=== PATIENT | female | born 1980 | race Caucasian/White ===

== ENCOUNTER → 2017-12-19 | Outpatient (CLI) | payer OTHER ==
--- NOTE | 2017-12-19 15:17 | RADIOLOGY REPORT (SQ) ---
EXAM DESCRIPTION: CHEST PA/LAT COMPLETED DATE/TIME: 12/19/2017 2:24 pm REASON FOR STUDY: COUGH COMPARISON: None. EXAM PARAMETERS: NUMBER OF VIEWS: two views TECHNIQUE: Digital Frontal and Lateral radiographic views of the chest acquired. RADIATION DOSE: NA LIMITATIONS: none FINDINGS: LUNGS AND PLEURA: No opacities, masses or pneumothorax. No pleural effusion. MEDIASTINUM AND HILAR STRUCTURES: No masses or contour abnormalities. HEART AND VASCULAR STRUCTURES: Heart normal size. No evidence for failure. BONES: No acute findings. HARDWARE: Clips right upper quadrant post cholecystectomy OTHER: No other significant finding. IMPRESSION: NO SIGNIFICANT RADIOGRAPHIC FINDING IN THE CHEST. TECHNICAL DOCUMENTATION: JOB ID: [id number] [employer]- All Rights Reserved
== END ==
LOC: RAD 14:05
PROVIDERS: ATTEND Nurse Practitioner Family
DX: R05 Cough (principal)
CPT/HCPCS: 71046

== ENCOUNTER 2018-01-02 16:05 | Emergency (ER) | payer OTHER ==
--- NOTE | 2018-01-02 17:24 | ER Document Report ---
ED Medical Screen (RME) - General Chief Complaint: Chest Pain Stated Complaint: CHEST PAIN Time Seen by Provider: 01/02/18 17:23 Notes: cp/palp/cough for several day. recently had pna. has finishced abx TRAVEL OUTSIDE OF THE U[place] IN LAST 30 DAYS: No - Related Data Allergies/Adverse Reactions: acetaminophen [From Darvocet-N] Allergy (Verified 01/02/18 16:08) propoxyphene [From Darvocet-N] Allergy (Verified 01/02/18 16:08) prednisone Adverse Reaction (Verified 01/02/18 16:08) Change in behavior muscle relaxers Allergy (Uncoded 01/02/18 16:08) Past Medical History - Social History Frequency of alcohol use: None Drug Abuse: None Renal/ Medical History: Denies: Hx Peritoneal Dialysis Physical Exam - Vital signs Vitals: Temp Pulse Resp BP Pulse Ox 99.1 F 103 H 18 139/81 H 97 01/02/18 16:37 01/02/18 16:37 01/02/18 16:37 01/02/18 16:37 01/02/18 16:37 Course - Vital Signs Vital signs: Temp Pulse Resp BP Pulse Ox 99.1 F 103 H 18 139/81 H 97 01/02/18 16:37 01/02/18 16:37 01/02/18 16:37 01/02/18 16:37 01/02/18 16:37
--- NOTE | 2018-01-02 18:18 | RADIOLOGY REPORT (SQ) ---
EXAM DESCRIPTION: CHEST PA/LAT COMPLETED DATE/TIME: 01/02/2018 6:03 pm REASON FOR STUDY: pain COMPARISON: 12/19/2017. TECHNIQUE: Frontal and lateral radiographic views of the chest acquired. NUMBER OF VIEWS: Two view. LIMITATIONS: None. FINDINGS: LUNGS AND PLEURA: No opacities, masses or pneumothorax. No pleural effusion. MEDIASTINUM AND HILAR STRUCTURES: No masses or contour abnormalities. HEART AND VASCULAR STRUCTURES: Heart normal size. No evidence for failure. BONES: No acute findings. HARDWARE: None in the chest. OTHER: No other significant finding. IMPRESSION: NO SIGNIFICANT RADIOGRAPHIC FINDING IN THE CHEST. TECHNICAL DOCUMENTATION: JOB ID: [id number] [employer]- All Rights Reserved
[2018-01-02 18:38] LABS: ABSOLUTE BASOPHILS # (AUTO) 0.1 10^3/uL (0.0-0.2); ABSOLUTE EOSINOPHILS # (AUTO) 0.1 10^3/uL (0.0-0.6); ABSOLUTE LYMPHOCYTES (AUTO) 3.5 10^3/uL (0.5-4.7); ABSOLUTE MONOCYTES (AUTO) 0.6 10^3/uL (0.1-1.4); ABSOLUTE NEUT (AUTO) 8.7 10^3/uL (1.7-8.2); BASOPHILS % (AUTO) 0.6 % (0-2); EOSINOPHILS % (AUTO) 0.6 % (0-6); HEMATOCRIT 43.6 % (36.0-47.0); HEMOGLOBIN 14.9 g/dL (12.0-15.5); MEAN CORPUSCULAR HEMOGLOBIN 30.1 pg (27.0-33.4); MEAN CORPUSCULAR HGB CONC 34.2 g/dL (32.0-36.0); MEAN CORPUSCULAR VOLUME 88 fl (80-97); MONOCYTES % (AUTO) 4.5 % (3-13); PLATELET COUNT 379 10^3/uL (150-450); RED BLOOD COUNT 4.94 10^6/uL (3.72-5.28); RED CELL DISTRIBUTION WIDTH 13.6 % (11.5-14.0); SEGMENTED NEUTROPHILS % (AUTO) 67.3 % (42-78); TOTAL CELLS COUNTED % (AUTO) 100 %
[2018-01-02 18:58] LABS: ALBUMIN 4.6 g/dL (3.5-5.0); ANION GAP 10 (5-19); BLOOD UREA NITROGEN 5 mg/dL (7-20); CALCIUM 9.9 mg/dL (8.4-10.2); CARBON DIOXIDE 25 mmol/L (22-30); CHLORIDE 104 mmol/L (98-107); GLUCOSE 92 mg/dL (75-110); POTASSIUM 4.1 mmol/L (3.6-5.0); SODIUM 138.9 mmol/L (137-145); TOTAL PROTEIN 7.5 g/dL (6.3-8.2)
[2018-01-02 19:00] LABS: ALANINE AMINOTRANSFERASE 40 U/L (9-52); ALKALINE PHOSPHATASE 90 U/L (38-126); ASPARTATE AMINO TRANSFERASE 22 U/L (14-36); BILIRUBIN,DIRECT 0.1 mg/dL (0.0-0.4); BILIRUBIN,TOTAL 0.2 mg/dL (0.2-1.3)
[2018-01-02 22:34] VITALS: BP 141/77
--- NOTE | 2018-01-02 22:34 | EKG REPORT ---
SEVERITY:- OTHERWISE NORMAL ECG - SINUS TACHYCARDIA : Confirmed by: Malick Valladares 02-Jan-2018 22:32:43
--- NOTE | 2018-01-02 23:02 | ER Document Report ---
ED General - General Chief Complaint: Chest Pain Stated Complaint: CHEST PAIN Time Seen by Provider: 01/02/18 17:23 Mode of Arrival: Ambulatory Information source: Patient TRAVEL OUTSIDE OF THE [place] IN LAST 30 DAYS: No - HPI Patient complains to provider of: migraine Onset: Yesterday Onset/Duration: Gradual Quality of pain: Throbbing - "occiput". "where it usially starts" Severity: Mild - "it is starting to settle down" Associated symptoms: Chest pain - hurts with deep breath-just finished tamiflu , Nonproductive cough, Headache, Hurts to breath. denies: Body/muscle aches, Diarrhea, Earache, Fever, Nausea, Vomiting, Shortness of breath, Sore throat, Sweating, Weakness Exacerbated by: Other - "fire alarm, all the people in the waiting room" Similar symptoms previously: Yes Recently seen / treated by doctor: Yes Notes: 37-year-old female states that she started her usual migraine yesterday. It began in the occipital area "starting to settle down" now. Patient had decreased p.o. intake. Nausea vomiting diarrhea or fevers She states she did not get the flu vaccination she was diagnosed with the flu recently finished Tamiflu December 19, 2017. Patient states she smokes about a pack and a half a day. She does have a dry nonproductive cough now. She states that it hurts when she takes a deep breath in her chest area. No dizziness lightheadedness arm or jaw pain. Past surgical history significant for uterus and left ovarian removal. - Related Data Allergies/Adverse Reactions: acetaminophen [From Darvocet-N] Allergy (Verified 01/02/18 16:08) propoxyphene [From Darvocet-N] Allergy (Verified 01/02/18 16:08) prednisone Adverse Reaction (Verified 01/02/18 16:08) Change in behavior muscle relaxers Allergy (Uncoded 01/02/18 16:08) Past Medical History - General Information source: Patient, Relative - Social History Smoking Status: Current Every Day Smoker Frequency of alcohol use: None Drug Abuse: None Family History: Reviewed & Not Pertinent Patient has suicidal ideation: No Patient has homicidal ideation: No - Past Medical History Cardiac Medical History: Reports: None EENT Medical History: Reports: None Neurological Medical History: Reports: Hx Migraine Endocrine Medical History: Reports: None, Other - PCOS-is to start metformin today Renal/ Medical History: Reports: Hx Ovarian Cysts. Denies: Hx Peritoneal Dialysis Malignancy Medical History: Reports: None GI Medical History: Reports: None Musculoskeltal Medical History: Reports Other - Cut L thumb and had to have a skin graft to fix it from her left tricep are Skin Medical History: Reports None Psychiatric Medical History: Reports: None Infectious Medical History: Reports: Other - Influenza Past Surgical History: Reports: Hx Hysterectomy Review of Systems - Review of Systems Constitutional: No symptoms reported EENT: No symptoms reported, Other - Ear infection no signs or symptoms of infection now Cardiovascular: Heart racing - She states she had pulse ox at home and took her heart rate was 140 Gastrointestinal: Poor fluid intake Genitourinary: No symptoms reported Female Genitourinary: No symptoms reported Musculoskeletal: No symptoms reported Skin: No symptoms reported Hematologic/Lymphatic: No symptoms reported Neurological/Psychological: Headaches Physical Exam - Vital signs Vitals: Temp Pulse Resp BP Pulse Ox 99.1 F 103 H 18 139/81 H 97 01/02/18 16:37 01/02/18 16:37 01/02/18 16:37 01/02/18 16:37 01/02/18 16:37 - Notes Notes: PHYSICAL EXAMINATION: GENERAL: Well-appearing, well-nourished and in no acute distress. HEAD: Atraumatic, normocephalic. EYES: Pupils equal round and reactive to light, extraocular movements intact, conjunctiva are normal. ENT: Nares patent, oropharynx clear without exudates. Moist mucous membranes. NECK: Normal range of motion, supple without lymphadenopathy. No anginal signs. No photophobia. LUNGS: Breath sounds clear to auscultation bilaterally and equal. No wheezes rales or rhonchi. HEART: Regular rate and rhythm without murmurs ABDOMEN: Soft, nontender, nondistended abdomen. No guarding, no rebound. No masses appreciated. Female : deferred Musculoskeletal: Normal range of motion, no pitting or edema. No cyanosis. NEUROLOGICAL: Cranial nerves grossly intact. Normal speech, normal gait. Normal sensory, motor exams PSYCH: Normal mood, normal affect. SKIN: Warm, Dry, normal turgor, no rashes or lesions noted. Incisional scar to left triceps area Course - Re-evaluation Re-evalutation: 01/02/18 23:09 Labs- All tests 24 hr 01/02/18 01/02/18 01/02/18 18:17 18:17 18:17 WBC 13.0 H RBC 4.94 Hgb 14.9 Hct 43.6 MCV 88 MCH 30.1 MCHC 34.2 RDW 13.6 Plt Count 379 Seg Neutrophils % 67.3 Lymphocytes % 27.0 Monocytes % 4.5 Eosinophils % 0.6 Basophils % 0.6 Absolute Neutrophils 8.7 H Absolute Lymphocytes 3.5 Absolute Monocytes 0.6 Absolute Eosinophils 0.1 Absolute Basophils 0.1 Sodium 138.9 Potassium 4.1 Chloride 104 Carbon Dioxide 25 Anion Gap 10 BUN 5 L Creatinine 0.45 L Est GFR ( Amer) > 60 Est GFR (Non-Af Amer) > 60 Glucose 92 Calcium 9.9 Total Bilirubin 0.2 Direct Bilirubin 0.1 Neonat Total Bilirubin Not Reportable Neonat Direct Bilirubin Not Reportable Neonat Indirect Bili Not Reportable AST 22 ALT 40 Alkaline Phosphatase 90 Troponin I < 0.012 Total Protein 7.5 Albumin 4.6 Chest X-Ray 01/02/18 17:23 IMPRESSION: NO SIGNIFICANT RADIOGRAPHIC FINDING IN THE CHEST. 01/02/18 23:09 She was feeling better requesting to go home. She was tolerating soda p.o. - Vital Signs Vital signs: Temp Pulse Resp BP Pulse Ox 98.2 F 96 18 141/77 H 96 01/02/18 22:32 01/02/18 22:32 01/02/18 22:32 01/02/18 22:32 01/02/18 22:32 - Laboratory Result Diagrams: 01/02/18 18:17 01/02/18 18:17 Laboratory results interpreted by me: 01/02/18 01/02/18 18:17 18:17 WBC 13.0 H Absolute Neutrophils 8.7 H BUN 5 L Creatinine 0.45 L Discharge - Discharge Clinical Impression: Migraine Condition: Stable Disposition: HOME, SELF-CARE Instructions: Chest Pain of Unclear Cause ([facility]), Migraine Headache ([facility]), High Blood Pressure ([facility]) Additional Instructions: Follow up with your physician tomorrow for further care or return to the ED IMMEDIATELY if symptoms worsen or new concerns occur. If you cannot afford to follow up with your primary care physician a list of low cost clinics have been provided at the end of your discharge papers as well. Forms: Elevated Blood Pressure Referrals: SHAWNA CHISHOLM NP [Primary Care Provider] - Follow up in 3-5 days
== END 2018-01-02 23:05 | disposition home or self-care (01) ==
LOC: ER 16:05
DX: G43.909 Migraine, unspecified, not intractable, without status migrainosus (principal); R07.9 Chest pain, unspecified; F17.210 Nicotine dependence, cigarettes, uncomplicated; Z88.6 Allergy status to analgesic agent; Z90.710 Acquired absence of both cervix and uterus
CPT/HCPCS: 36415; 71046; 80053; 84484; 85025; 93005; 93010; 99285

== ENCOUNTER 2018-11-21 20:19 | Inpatient (IN) | payer OTHER ==
[~2018-11-21 20:19] MED LIST: CEFTRIAXONE 1 GM/D5W RTU 1 GM/50 ML RTUPB IV ONE
[2018-11-21] MEDS ORDERED: PROMETHAZINE HCL INJ 25 MG/1 ML VIAL ONE (20:36)
[2018-11-21] MEDS ORDERED: ONDANSETRON HCL INJ/PF 4 MG/2 ML SDV ONE (20:36)
[2018-11-21] MEDS ORDERED: ACETAMINOPHEN 325 MG TABLET PO ONE (20:43)
[2018-11-21] MEDS ORDERED: IPRATROPIUM/ALBUTEROL 0.5-2.5 MG/3 ML AMPUL NEB ONE (20:58)
[2018-11-21] MEDS ORDERED: LIDOCAINE 1% INJ-PF (10 MG/ML) 30 ML SDV NEB ONE (20:58)
[2018-11-21] MEDS ORDERED: NORMAL SALINE 1000 ML 1,000 ML IV ONE (20:58)
[2018-11-21 21:02] LABS: ABSOLUTE LYMPHOCYTES (AUTO) 1.6 10^3/uL (0.5-4.7); ABSOLUTE MONOCYTES (AUTO) 0.4 10^3/uL (0.1-1.4); ABSOLUTE NEUT (AUTO) 6.3 10^3/uL (1.7-8.2); BASOPHILS % (AUTO) 0.4 % (0-2); EOSINOPHILS % (AUTO) 0.2 % (0-6); HEMATOCRIT 43.2 % (36.0-47.0); HEMOGLOBIN 14.6 g/dL (12.0-15.5); LYMPHOCYTES % (AUTO) 18.9 % (13-45); MEAN CORPUSCULAR HEMOGLOBIN 29.4 pg (27.0-33.4); MEAN CORPUSCULAR HGB CONC 33.7 g/dL (32.0-36.0); MEAN CORPUSCULAR VOLUME 87 fl (80-97); MONOCYTES % (AUTO) 5.2 % (3-13); PLATELET COUNT 255 10^3/uL (150-450); RED BLOOD COUNT 4.96 10^6/uL (3.72-5.28); SEGMENTED NEUTROPHILS % (AUTO) 75.3 % (42-78); TOTAL CELLS COUNTED % (AUTO) 100 %; WHITE BLOOD COUNT 8.3 10^3/uL (4.0-10.5)
[2018-11-21] MEDS: NORMAL SALINE 1000 ML 1,000 ML IV PRN ×2 (21:05→21:26)
[2018-11-21] MEDS ORDERED: ONDANSETRON HCL INJ/PF 4 MG/2 ML SDV IV ONE (21:08)
[2018-11-21 21:12] LABS: INTERNATIONAL RATION (INR) 0.95; PROTHROMBIN TIME 13.2 SEC (11.4-15.4)
[2018-11-21 21:15] LABS: VENOUS BLOOD BASE EXCESS -0.5 mmol/L; VENOUS BLOOD HCO3 23.1 mmol/L (20-32); VENOUS BLOOD PCO2 35.1 mmHg (35-63); VENOUS BLOOD PH 7.44 (7.30-7.42)
[2018-11-21 21:21] LABS: ALANINE AMINOTRANSFERASE 22 U/L (9-52); ALBUMIN 4.2 g/dL (3.5-5.0); ALKALINE PHOSPHATASE 78 U/L (38-126); ANION GAP 10 (5-19); ASPARTATE AMINO TRANSFERASE 25 U/L (14-36); BILIRUBIN,DIRECT 0.3 mg/dL (0.0-0.4); BILIRUBIN,TOTAL 0.4 mg/dL (0.2-1.3); BLOOD UREA NITROGEN 7 mg/dL (7-20); CALCIUM 9.1 mg/dL (8.4-10.2); CARBON DIOXIDE 26 mmol/L (22-30); CHLORIDE 103 mmol/L (98-107); GLUCOSE 106 mg/dL (75-110); POTASSIUM 4.1 mmol/L (3.6-5.0); SODIUM 139.4 mmol/L (137-145); TOTAL PROTEIN 7.2 g/dL (6.3-8.2)
--- NOTE | 2018-11-21 21:42 | RADIOLOGY REPORT (SQ) ---
PROCEDURE: XR CHEST 1 VIEW HISTORY: fever/difficultybreathing COMPARISON: None TECHNIQUE: The study was completed on 11/21/2018 at 9:17 PM Single projection of the chest was done. FINDINGS: The lung mcfarland are well inflated . There are no discrete airspace infiltrates, pneumothoraces or pleural effusions. The pulmonary vascularity is normal. The cardiomediastinal silhouette is unremarkable for patient's age and sex. IMPRESSION: There is no acute pleural-parenchymal process seen in the imaged lung mcfarland. Location of Interpretation: [facility]
[2018-11-21 21:58] LABS: A TYPE INFLUENZA AG NEGATIVE (NEGATIVE); B INFLUENZA AG NEGATIVE (NEGATIVE)
[2018-11-21 23:26] LABS: APPEARANCE,URINE CLEAR; BILIRUBIN,URINE NEGATIVE (NEGATIVE); COLOR,URINE YELLOW; GLUCOSE, URINE NEGATIVE (NEGATIVE); KETONES,URINE NEGATIVE (NEGATIVE); LEUKOCYTE ESTERASE,URINE NEGATIVE (NEGATIVE); NITRITE,URINE NEGATIVE (NEGATIVE); PROTEIN,URINE NEGATIVE (NEGATIVE); URINE SPECIFIC GRAVITY 1.011; UROBILINOGEN,URINE NEGATIVE mg/dL (<2.0)
--- NOTE | 2018-11-22 | EKG REPORT ---
SEVERITY:- ABNORMAL ECG - SINUS TACHYCARDIA PROBABLE LEFT ATRIAL ABNORMALITY PROBABLE INFERIOR INFARCT, AGE INDETERMINATE : Confirmed by: Malick Valladares 21-Nov-2018 23:58:52
--- NOTE | 2018-11-22 00:05 | RADIOLOGY REPORT (SQ) ---
EXAM DESCRIPTION: CT CHEST ANGIOGRAPHY WITHOUT THEN WITH IV CONTRAST COMPLETED DATE/TME: 11/21/2018 22:08 CLINICAL HISTORY: 38 years, Female, fever sob recent travel COMPARISON: None. TECHNIQUE: 593 Images stored on PACS. All CT scanners at this facility use dose modulation, iterative reconstruction, and/or weight based dosing when appropriate to reduce radiation dose to as low as reasonably achievable (ALARA). Axial CTA images of the chest were obtained with coronal and sagittal MIPS reconstructions. [facility]: Dose Right [facility]: CareDose [facility]: Dose Right [facility]: Teradose 4D [facility]: [employer] LIMITATIONS: None. FINDINGS: The visualized thyroid gland enhances normally. Suboptimal contrast bolus limits the exam however there is no large or central pulmonary embolus. Negative for thoracic aortic aneurysm or dissection. Nonspecific mediastinal and bilateral hilar adenopathy. The heart and pericardium are unremarkable. Limited evaluation of the upper abdomen is unremarkable. Osseous structures are grossly intact. No pneumothorax. Groundglass opacities in the upper lobes bilaterally, as well as in the lung bases and perihilar regions likely reflecting bilateral pneumonia. Visualized airways are patent. IMPRESSION: Rather extensive groundglass opacities bilaterally likely reflecting pneumonia. Mediastinal and hilar adenopathy may be reactive. Recommend follow-up following appropriate therapy. Negative for pulmonary embolus. TECHNICAL DOCUMENTATION: Quality ID # [id number]: Final reports with documentation of one or more dose reduction techniques (e.g., Automated exposure control, adjustment of the mA and/or kV according to patient size, use of iterative reconstruction technique) copyright 2011 [employer]- All Rights Reserved
[2018-11-22] MEDS ORDERED: LEVOFLOXACIN 750 MG/D5W RTU 750 MG/150 ML RTUPB IV ONE (00:19)
--- NOTE | 2018-11-22 00:24 | ER Document Report ---
ED General - General Chief Complaint: Shortness Of Breath Stated Complaint: CHILLS,FEVER,VOMITING,SHORT OF BREATH Time Seen by Provider: 11/21/18 20:44 TRAVEL OUTSIDE OF THE [place] IN LAST 30 DAYS: No - HPI Patient complains to provider of: Shortness of breath fevers and chills Notes: Patient coming in for shortness of breath fevers chills nausea vomiting for the last few days. Patient states was recently seen by her primary care physician diagnosed with acute sinusitis started on Augmentin. Patient states started taking Augmentin Tuesday prior to arrival. Patient states recently traveled to [place] flying there and driving back. Patient states she was in a surgical center with her mother as her mother had surgery and then drove her mother back to [place] patient unaware of her fluid status. Patient states history of hypertension denies any smoking patient looks to be uncomfortable upon my evaluation - Related Data Allergies/Adverse Reactions: propoxyphene [From Darvocet-N] Allergy (Verified 01/02/18 16:08) prednisone Adverse Reaction (Verified 01/02/18 16:08) Change in behavior muscle relaxers Allergy (Uncoded 01/02/18 16:08) Past Medical History - Social History Smoking Status: Current Some Day Smoker Family History: Reviewed & Not Pertinent Patient has suicidal ideation: No Patient has homicidal ideation: No - Past Medical History Cardiac Medical History: Reports: Hx Hypertension Neurological Medical History: Reports: Hx Migraine Renal/ Medical History: Reports: Hx Ovarian Cysts. Denies: Hx Peritoneal Dialysis Past Surgical History: Reports: Hx Hysterectomy Review of Systems - Review of Systems Constitutional: Fever EENT: No symptoms reported Cardiovascular: No symptoms reported Respiratory: Cough, Short of breath, Wheezing Gastrointestinal: No symptoms reported Genitourinary: No symptoms reported Female Genitourinary: No symptoms reported Musculoskeletal: No symptoms reported Skin: No symptoms reported Hematologic/Lymphatic: No symptoms reported Neurological/Psychological: No symptoms reported -: Yes All other systems reviewed and negative Physical Exam - Vital signs Vitals: Temp Pulse Resp BP Pulse Ox 102.3 F H 126 H 24 H 135/81 H 94 11/21/18 20:27 11/21/18 20:27 11/21/18 20:27 11/21/18 20:27 11/21/18 20:27 Interpretation: Tachycardic, Tachypneic, Febrile - General General appearance: Alert, Other - Uncomfortable - HEENT Head: Normocephalic, Atraumatic Eyes: Normal Pupils: PERRL - Respiratory Respiratory status: Tachypnea Chest status: Nontender Breath sounds: Normal Chest palpation: Normal - Cardiovascular Rhythm: Regular Heart sounds: Normal auscultation Murmur: No - Abdominal Inspection: Normal Distension: No distension Bowel sounds: Normal Tenderness: Nontender Organomegaly: No organomegaly - Back Back: Normal, Nontender - Extremities General upper extremity: Normal inspection, Nontender, Normal color, Normal ROM, Normal temperature General lower extremity: Normal inspection, Nontender, Normal color, Normal ROM, Normal temperature, Normal weight bearing. No: Olu's sign - Neurological Neuro grossly intact: Yes Cognition: Normal Orientation: AAOx4 Benjy Coma Scale Eye Opening: Spontaneous Benjy Coma Scale Verbal: Oriented Benjy Coma Scale Motor: Obeys Commands Benjy Coma Scale Total: 15 Speech: Normal Motor strength normal: LUE, RUE, LLE, RLE Sensory: Normal - Psychological Associated symptoms: Normal affect, Normal mood - Skin Skin Temperature: Warm Skin Moisture: Dry Skin Color: Normal Course - Re-evaluation Re-evalutation: 11/22/18 02:50 Patient febrile tachycardic tachypneic meeting SIRS criteria. Initial workup did not reveal any white count no lactic acidosis VBG was normal. Patient's chest x-ray was read as normal however continued to require increasing amount of oxygen as that her SPO2 decreased into the lower 90s upper 80s. Patient was placed on 2 L her oxygen. Initially thought tachycardia due to dehydration due to the patient's history of nausea vomiting which is more likely related to her Augmentin use. Mild to moderate improvement of her heart rate however continued to be tachycardic therefore due to the patient's recent travel CTA was performed showing no PE but bilateral groundglass opacities concerning for infection initially started patient on Rocephin discussed with the hospitalist about admission and requesting Levaquin be administered as well. Patient will be admitted to the [facility] - Vital Signs Vital signs: Temp Pulse Resp BP Pulse Ox 100.8 F H 126 H 30 H 137/71 H 92 11/21/18 23:36 11/21/18 20:27 11/22/18 01:15 11/22/18 01:16 11/22/18 01:01 - Laboratory Result Diagrams: 11/21/18 20:51 11/21/18 20:51 Laboratory results interpreted by me: 11/21/18 11/21/18 11/21/18 20:51 21:05 23:07 VBG pH 7.44 H Creatinine 0.50 L Urine Blood SMALL H Critical Care Note - Critical Care Note Total time excluding time spent on procedures (mins): 35 Comments: Multiple evaluation patient with sepsis due to pneumonia Discharge - Discharge Clinical Impression: Bilateral pneumonia Qualifiers: Pneumonia type: due to unspecified organism Lung location: unspecified part of lung Qualified Code(s): J18.9 - Pneumonia, unspecified organism Fever Qualifiers: Fever type: unspecified Qualified Code(s): R50.9 - Fever, unspecified Sepsis Qualifiers: Sepsis type: sepsis due to unspecified organism Qualified Code(s): A41.9 - Sepsis, unspecified organism Condition: Stable Disposition: ADMITTED INPATIENT Admitting Provider: [facility] Unit Admitted: [facility]
[2018-11-22] MEDS ORDERED: CEFTRIAXONE 1 GM/D5W RTU 1 GM/50 ML RTUPB IV ONE (00:33)
[2018-11-22] MEDS ORDERED: ONDANSETRON HCL INJ/PF 4 MG/2 ML SDV IV PRN (01:04)
[2018-11-22] MEDS ORDERED: MAGNESIUM HYDROXIDE SUSP 30 ML UDCUP PO PRN (01:04)
[2018-11-22] MEDS ORDERED: ONDANSETRON 4 MG TAB.RAPDIS PO PRN (01:04)
[2018-11-22] MEDS ORDERED: MAG HYDROX/AL HYDROX/SIMETH SUSP 30 ML UDCUP PO PRN (01:04)
[2018-11-22] MEDS ORDERED: ACETAMINOPHEN 650 MG SUPP.RECT PR PRN (01:10)
[2018-11-22] MEDS: POTASSI CL 20 MEQ/D5-1/2NS 1L 1,000 ML IV PRN ×3 (02:42→21:27)
[2018-11-22] MEDS: ACETAMINOPHEN 325 MG TABLET PO PRN ×2 (02:48→10:13)
--- NOTE | 2018-11-22 03:39 | PDOC H&P ---
History of Present Illness Admission Date/PCP: 11/22/18 00:28 SHAWNA CHISHOLM NP Patient complains of: Nausea and vomiting History of Present Illness: EVE JUAREZ is a 38 year old female with a 5-day history of progressively worsening upper respiratory symptoms. She admits to nasal congestion alternating with rhinorrhea and sneezing beginning 5 days ago and progressing gradually to a mild nonproductive cough and sore throat followed by continued progression to a more frequent and intense nonproductive cough with associated subjective severe fever with chills and frequent posttussive emesis. She rates her cough as severe and has not identified any aggravating or ameliorating factors for her cough other than it is worsened by smoking. She admits to [facility] similar prior episodes with pneumonia or other respiratory tract infections requiring hospitalization in some cases. In the emergency room she was found to have a sinus tachycardia in the 120's with a fever of 102.3 F, a minimally elevated white blood count of 10,900 and a negative chest x-ray but she did have some transient hypoxia while in the emergency room requiring supplemental oxygen to be provided and she subsequently had a CTA of her chest performed which was negative for pulmonary embolus but did show some scattered patchy areas of interstitial infiltrate. She was subsequently admitted for intravenous antibiotic therapy until such time she can tolerate oral antibiotics and is stable on that regimen. Past Medical History Cardiac Medical History: Reports: Hypertension Denies: Coronary Artery Disease, DVT, Pulmonary Embolism Pulmonary Medical History: Reports: Pneumonia Denies: Asthma, Chronic Obstructive Pulmonary Disease (COPD), Respiratory Failure EENT Medical History: Reports: None Neurological Medical History: Reports: Migraine Denies: Seizures Endocrine Medical History: Reports: Obesity Denies: Diabetes Mellitus Type 1, Diabetes Mellitus Type 2 Renal/ Medical History: Denies: Chronic Kidney Disease, Nephrolithiasis Malignancy Medical History: Reports: None GI Medical History: Reports: Gastroesophageal Reflux Disease, Other - Chronic co litis Denies: Cirrhosis, Hepatitis Musculoskeltal Medical History: Denies: Arthritis, Gout Skin Medical History: Denies: Eczema, Psoriasis Psychiatric Medical History: Reports: Depression, Tobacco Dependency Denies: Alcohol Dependency, General Anxiety Disorder, Substance Abuse Traumatic Medical History: Reports: None Hematology: Denies: Anemia, Bleeding Tendencies Infectious Medical History: Reports: None Past Surgical History Past Surgical History: Reports: Cholecystectomy, Hysterectomy, Other - Multiple colonoscopies, skin graft for left thumb Social History Information Source: Patient Lives with: Spouse/Significant other Smoking Status: Current Every Day Smoker Frequency of Alcohol Use: None Hx Recreational Drug Use: No Drugs: None Hx Prescription Drug Abuse: No - Advance Directive Resuscitation Status: Full Code Surrogate healthcare decision maker:: Spouse Family History Family History: CAD, DM, Hypertension, Malignancy Parental Family History Reviewed: Yes Children Family History Reviewed: No Sibling(s) Family History Reviewed.: Yes Medication/Allergy Home Medications: Amitriptyline HCl [Elavil 50 Mg Tablet] 50 mg PO QHS 11/22/18 Butalb/Acetaminophen/Caffeine [Fioricet 50-300-40 mg Capsule] 1 - 2 cap PO Q4HP PRN 11/22/18 Cholestyramine (with Sugar) [Cholestyramine Packet] 4 gm PO DAILYP PRN 11/22/18 Promethazine HCl [Phenergan 25 mg Tablet] 25 mg PO Q6HP PRN 11/22/18 Ranitidine HCl [Zantac 150 mg Tablet] 150 mg PO BID 11/22/18 Sertraline HCl [Zoloft] 150 mg PO DAILY 11/22/18 Allergies/Adverse Reactions: propoxyphene [From Darvocet-N] Allergy (Verified 11/22/18 03:08) muscle relaxers Allergy (Uncoded 11/22/18 03:08) Review of Systems Constitutional: PRESENT: chills, fever(s) Eyes: ABSENT: visual disturbances, other - Ocular pain Ears: ABSENT: hearing changes, other - Ear pain Nose, Mouth, and Throat: PRESENT: as per HPI, sore throat. ABSENT: mouth pain Cardiovascular: PRESENT: as per HPI, dyspnea on exertion. ABSENT: chest pain, edema, orthropnea, palpitations Respiratory: PRESENT: as per HPI, cough - Nonproductive, with posttussive emesis , dyspnea. ABSENT: hemoptysis, sputum Gastrointestinal: PRESENT: nausea, vomiting. ABSENT: abdominal pain, constipation, diarrhea Genitourinary: ABSENT: dysuria, hematuria Musculoskeletal: ABSENT: back pain, joint swelling Integumentary: PRESENT: rash - Skin irritation above both eyebrows due to a pplication of wax for eyebrow removal and makeup.. ABSENT: pruritus Neurological: ABSENT: confusion, convulsions, memory loss, syncope, vertigo Psychiatric: ABSENT: anxiety, depression Endocrine: ABSENT: cold intolerance, heat intolerance Hematologic/Lymphatic: ABSENT: easy bleeding, easy bruising Physical Exam Vital Signs: Temp Pulse Resp BP Pulse Ox 100.8 F H 126 H 30 H 137/71 H 92 11/21/18 23:36 11/21/18 20:27 11/22/18 01:15 11/22/18 01:16 11/22/18 01:01 Intake & Output 11/20/18 11/21/18 11/22/18 23:59 23:59 23:59 Intake Total 1350 50 Balance 1350 50 Weight 97.2 kg General appearance: PRESENT: cooperative, mild distress - Due to respiratory symptoms, morbidly obese Head exam: PRESENT: atraumatic, normocephalic Eye exam: PRESENT: EOMI. ABSENT: conjunctival injection, scleral icterus Ear exam: PRESENT: normal external ear exam. ABSENT: bleeding, drainage Mouth exam: PRESENT: dry mucosa, neck supple Neck exam: ABSENT: JVD, thyromegaly, tracheal deviation Respiratory exam: PRESENT: symmetrical, tachypnea - Mild tachypnea, unlabored, wheezes - Rare and scattered. ABSENT: accessory muscle use, decreased breath sounds, prolonged expiratory phas, rales, rhonchi Cardiovascular exam: PRESENT: RRR, tachycardia - Mild tachycardia. ABSENT: clicks, diastolic murmur, gallop, rubs, systolic murmur Pulses: PRESENT: normal radial pulses, normal dorsalis pedis pul GI/Abdominal exam: PRESENT: normal bowel sounds, soft Rectal exam: PRESENT: deferred Extremities exam: ABSENT: joint swelling, pedal edema, tenderness Musculoskeletal exam: PRESENT: full ROM, normal inspection Neurological exam: PRESENT: alert, oriented to person, oriented to place, oriented to time, oriented to situation, CN II-XII grossly intact. ABSENT: motor sensory deficit Psychiatric exam: PRESENT: appropriate affect, normal mood Skin exam: PRESENT: dry, intact, warm. ABSENT: jaundice, rash, urticaria Results Laboratory Results: 11/21/18 20:51 11/21/18 20:51 11/21/18 11/21/18 11/21/18 20:51 20:51 20:51 WBC 8.3 RBC 4.96 Hgb 14.6 Hct 43.2 MCV 87 MCH 29.4 MCHC 33.7 RDW 14.0 Plt Count 255 Seg Neutrophils % 75.3 Lymphocytes % 18.9 Monocytes % 5.2 Eosinophils % 0.2 Basophils % 0.4 Absolute Neutrophils 6.3 Absolute Lymphocytes 1.6 Absolute Monocytes 0.4 Absolute Eosinophils 0.0 Absolute Basophils 0.0 VBG pH VBG pCO2 VBG HCO3 VBG Base Excess Sodium 139.4 Potassium 4.1 Chloride 103 Carbon Dioxide 26 Anion Gap 10 BUN 7 Creatinine 0.50 L Est GFR ( Amer) > 60 Est GFR (Non-Af Amer) > 60 Glucose 106 Lactic Acid 1.6 Calcium 9.1 Total Bilirubin 0.4 AST 25 ALT 22 Alkaline Phosphatase 78 Total Protein 7.2 Albumin 4.2 Lipase Serum HCG, Qual Urine Color Urine Appearance Urine pH Ur Specific [place] Urine Protein Urine Glucose (UA) Urine Ketones Urine Blood Urine Nitrite Ur Leukocyte Esterase Urine WBC (Auto) Urine RBC (Auto) 11/21/18 11/21/18 11/21/18 20:51 20:51 21:05 WBC RBC Hgb Hct MCV MCH MCHC RDW Plt Count Seg Neutrophils % Lymphocytes % Monocytes % Eosinophils % Basophils % Absolute Neutrophils Absolute Lymphocytes Absolute Monocytes Absolute Eosinophils Absolute Basophils VBG pH 7.44 H VBG pCO2 35.1 VBG HCO3 23.1 VBG Base Excess -0.5 Sodium Potassium Chloride Carbon Dioxide Anion Gap BUN Creatinine Est GFR ( Amer) Est GFR (Non-Af Amer) Glucose Lactic Acid Calcium Total Bilirubin AST ALT Alkaline Phosphatase Total Protein Albumin Lipase 84.3 Serum HCG, Qual NEGATIVE Urine Color Urine Appearance Urine pH Ur Specific [place] Urine Protein Urine Glucose (UA) Urine Ketones Urine Blood Urine Nitrite Ur Leukocyte Esterase Urine WBC (Auto) Urine RBC (Auto) 11/21/18 23:07 WBC RBC Hgb Hct MCV MCH MCHC RDW Plt Count Seg Neutrophils % Lymphocytes % Monocytes % Eosinophils % Basophils % Absolute Neutrophils Absolute Lymphocytes Absolute Monocytes Absolute Eosinophils Absolute Basophils VBG pH VBG pCO2 VBG HCO3 VBG Base Excess Sodium Potassium Chloride Carbon Dioxide Anion Gap BUN Creatinine Est GFR ( Amer) Est GFR (Non-Af Amer) Glucose Lactic Acid Calcium Total Bilirubin AST ALT Alkaline Phosphatase Total Protein Albumin Lipase Serum HCG, Qual Urine Color YELLOW Urine Appearance CLEAR Urine pH 6.0 Ur Specific [place] 1.011 Urine Protein NEGATIVE Urine Glucose (UA) NEGATIVE Urine Ketones NEGATIVE Urine Blood SMALL H Urine Nitrite NEGATIVE Ur Leukocyte Esterase NEGATIVE Urine WBC (Auto) 1 Urine RBC (Auto) 5 11/21/18 20:51 Troponin I < 0.012 Impressions: Chest X-Ray 11/21/18 20:43 IMPRESSION: There is no acute pleural-parenchymal process seen in the imaged lung [place]. Location of Interpretation: [facility] Chest/Abdomen CTA 11/21/18 22:08 IMPRESSION: Rather extensive groundglass opacities bilaterally likely reflecting pneumonia. Mediastinal and hilar adenopathy may be reactive. Recommend follow-up following appropriate therapy. Negative for pulmonary embolus. TECHNICAL DOCUMENTATION: Quality ID # [id number]: Final reports with documentation of one or more dose reduction techniques (e.g., Automated exposure control, adjustment of the mA and/or kV according to patient size, use of iterative reconstruction technique) copyright 2011 [employer]- All Rights Reserved Assessment & Plan - Diagnosis (1) SIRS due to infectious process without acute organ dysfunction Is this a current diagnosis for this admission?: Yes Plan: Given the patient's normal white blood count, normal lactic acid and atypical pneumonia by CT scan the presence of her fever with the associated tachycardia is enough to lower the concern for sepsis to making sepsis essentially ruled out. Patient will be treated with IV antibiotics until such time she is able to tolerate an oral antibiotic regiment and is stable on same. (2) Primary atypical pneumonia Is this a current diagnosis for this admission?: Yes Plan: Patient be treated with Levaquin and an aggressive pulmonary toilet utilizing Xopenex, Atrovent, albuterol, Pulmicort, Mucomyst and supplemental oxygen as needed. She will additionally be treated with a short course of IV steroids. Daily CBCs be followed during her hospital course. (3) Morbid obesity with BMI of 40.0-44.9, adult Is this a current diagnosis for this admission?: Yes Plan: Patient will be on a regular diet during her hospital course however a dietitian will be consulted to provide recommendations for calorie reduction and lifestyle changes for the patient on an ongoing basis to help her achieve weight loss. (4) Nausea and vomiting in adult patient Is this a current diagnosis for this admission?: Yes (5) Fever with chills Is this a current diagnosis for this admission?: Yes Plan: Patient's fever will be treated with Tylenol on an as-needed basis. If necessary ibuprofen will also be employed to control patient's fever. - Time Time Spent: 30 to 50 Minutes Critical Time spent with patient: Less than 15 minutes Smoking Cessation Education: 3 to 10 minutes Medications reviewed and adjusted accordingly: Yes Anticipated discharge: Home Within: within 72 hours - Inpatient Certification Based on my medical assessment, after consideration of the patient's comorbidities, presenting symptoms, or acuity I expect that the services needed warrant INPATIENT care.: Yes I certify that my determination is in accordance with my understanding of Medicare's requirements for reasonable and necessary INPATIENT services [42 CFR 412.3e].: Yes Medical Necessity: Failure to Improve With Outpatient Therapy, Need For IV Fluids, Need for Nebulizer Therapy and Monitoring of Response, Need for IV Antibiotics
[2018-11-22] MEDS ORDERED: IBUPROFEN 800 MG TABLET PO PRN (03:40)
[2018-11-22] MEDS ORDERED: NICOTINE 21 MG/24 HR PATCH.TD24 TD PRN (03:41)
[2018-11-22] MEDS ORDERED: (PENDING PHARMACY ID) (Cholestyramine (With Sugar) [Cholestyramine Packet] 4 GM) PO PRN (03:42)
[2018-11-22] MEDS ORDERED: CHOLESTYRAMINE/ASPARTAME 4 GM PACKET PO PRN (04:00)
[2018-11-22] MEDS: METHYLPREDNISOLONE INJ 40 MG/1 ML SDV IV SCH ×3 (06:47→18:07)
[2018-11-22] MEDS: HEPARIN SOD (PORCINE) 5,000 UNIT/ML 1 ML SYRINGE SUBCUT SCH ×3 (06:47→21:13)
[2018-11-22] MEDS: LEVOFLOXACIN 750 MG TABLET PO SCH (06:47)
[2018-11-22 06:51] LABS: ARTERIAL BLOOD BASE EXCESS -0.5 mmol/L; ARTERIAL BLOOD HCO3 23.5 mmol/L (20-24); ARTERIAL BLOOD O2 SATURATION 95.2 % (94-98); ARTERIAL BLOOD PCO2 36.5 mmHg (35-45); ARTERIAL BLOOD PH 7.43 (7.35-7.45); ARTERIAL BLOOD PO2 73.5 mmHg (80-100); ARTERIAL BLOOD TOTAL CO2 24.6 mmol/L (21-25)
[2018-11-22 06:52] LABS: ARTERIAL BLOOD FIO2 2L
[2018-11-22] MEDS: BUDESONIDE NEB 0.5 MG/2 ML AMPUL NEB SCH ×2 (08:32→21:12)
[2018-11-22] MEDS: IPRATROPIUM BROMIDE 0.02% NEB 0.5 MG/2.5 ML AMPUL NEB SCH ×2 (08:32→16:26)
[2018-11-22] MEDS: ACETYLCYSTEINE 20% SOLN 800 MG/4 ML VIAL.NEB NEB SCH ×2 (08:32→21:12)
[2018-11-22] MEDS: LEVALBUTEROL HCL NEB 1.25 MG/3 ML AMPUL NEB SCH ×2 (08:33→16:26)
[2018-11-22] MEDS: SERTRALINE HCL 50 MG TABLET PO SCH (10:08)
[2018-11-22] MEDS: DOCUSATE SODIUM 100 MG CAPSULE PO SCH ×2 (10:08→18:09)
[2018-11-22] MEDS: FAMOTIDINE 20 MG TABLET PO SCH ×2 (10:08→21:13)
[2018-11-22] MEDS: AMITRIPTYLINE HCL 50 MG TABLET PO SCH (21:13)
[2018-11-22] MEDS: ALBUTEROL SULFATE 0.083% NEB 2.5 MG/3 ML AMPUL NEB PRN (21:15)
[2018-11-23] MEDS: LEVALBUTEROL HCL NEB 1.25 MG/3 ML AMPUL NEB SCH ×3 (00:30→16:17)
[2018-11-23] MEDS: IPRATROPIUM BROMIDE 0.02% NEB 0.5 MG/2.5 ML AMPUL NEB SCH ×3 (00:30→16:17)
[2018-11-23] MEDS: POTASSI CL 20 MEQ/D5-1/2NS 1L 1,000 ML IV PRN ×2 (03:36→09:52)
[2018-11-23 06:17] LABS: ABSOLUTE LYMPHOCYTES (AUTO) 1.5 10^3/uL (0.5-4.7); ABSOLUTE MONOCYTES (AUTO) 0.5 10^3/uL (0.1-1.4); ABSOLUTE NEUT (AUTO) 13.2 10^3/uL (1.7-8.2); BASOPHILS % (AUTO) 0.2 % (0-2); HEMATOCRIT 37.8 % (36.0-47.0); HEMOGLOBIN 12.8 g/dL (12.0-15.5); MEAN CORPUSCULAR HEMOGLOBIN 29.7 pg (27.0-33.4); MEAN CORPUSCULAR HGB CONC 33.8 g/dL (32.0-36.0); MEAN CORPUSCULAR VOLUME 88 fl (80-97); PLATELET COUNT 257 10^3/uL (150-450); RED CELL DISTRIBUTION WIDTH 13.9 % (11.5-14.0); SEGMENTED NEUTROPHILS % (AUTO) 86.8 % (42-78); TOTAL CELLS COUNTED % (AUTO) 100 %; WHITE BLOOD COUNT 15.2 10^3/uL (4.0-10.5)
[2018-11-23 06:43] LABS: ANION GAP 9 (5-19); BLOOD UREA NITROGEN 5 mg/dL (7-20); CALCIUM 9.1 mg/dL (8.4-10.2); CARBON DIOXIDE 24 mmol/L (22-30); CHLORIDE 106 mmol/L (98-107); GLUCOSE 202 mg/dL (75-110); POTASSIUM 4.5 mmol/L (3.6-5.0); SODIUM 139.3 mmol/L (137-145)
[2018-11-23] MEDS: HEPARIN SOD (PORCINE) 5,000 UNIT/ML 1 ML SYRINGE SUBCUT SCH ×3 (06:51→22:52)
[2018-11-23] MEDS: LEVOFLOXACIN 750 MG TABLET PO SCH (06:51)
[2018-11-23 06:55] LABS: FREE T3 2.12 pg/mL (2.77-5.27); FREE T4 (FREE THYROXINE) 0.79 ng/dL (0.78-2.19)
[2018-11-23 07:09] LABS: THYROID STIMULATING HORMONE 0.52 uIU/mL (0.47-4.68)
[2018-11-23] MEDS: ACETYLCYSTEINE 20% SOLN 800 MG/4 ML VIAL.NEB NEB SCH ×2 (08:07→20:16)
[2018-11-23] MEDS: BUDESONIDE NEB 0.5 MG/2 ML AMPUL NEB SCH ×2 (08:07→20:10)
[2018-11-23] MEDS: DOCUSATE SODIUM 100 MG CAPSULE PO SCH ×2 (09:15→16:59)
[2018-11-23] MEDS: SERTRALINE HCL 50 MG TABLET PO SCH (09:16)
[2018-11-23] MEDS: FAMOTIDINE 20 MG TABLET PO SCH ×2 (09:17→22:52)
--- NOTE | 2018-11-23 18:02 | PDOC PROGRESS REPORT ---
Subjective Progress Note for:: 11/23/18 Subjective:: No adverse events overnight. She feels like she is starting to cough up some whitish sputum. She says her ribs hurt when she coughs and she asked for an abdominal binder because she feels like that would make it more comfortable. She still requiring oxygen, and she got up and walked earlier and and her oxygen levels dropped into the low 80s. Reason For Visit: ACUTE RESPIRATORY FAILURE WITH HYPOXIA Physical Exam Vital Signs: Temp Pulse Resp BP Pulse Ox 98.8 F 87 16 126/82 H 96 11/23/18 15:34 11/23/18 16:17 11/23/18 16:17 11/23/18 15:34 11/23/18 16:17 Intake & Output 11/22/18 11/23/18 11/24/18 06:59 06:59 06:59 Intake Total 2100 3950 2118 Output Total 700 3325 500 Balance 7770 036 7068 Weight 99.7 kg 99.2 kg General appearance: PRESENT: no acute distress, cooperative, morbidly obese Respiratory exam: PRESENT: crackles - Bilaterally, symmetrical, unlabored. ABSENT: accessory muscle use, rhonchi, tachypnea, wheezes Cardiovascular exam: PRESENT: RRR, +S1, +S2 Vascular exam: PRESENT: normal capillary refill GI/Abdominal exam: PRESENT: normal bowel sounds, soft. ABSENT: distended, guarding, rebound, tenderness Extremities exam: ABSENT: clubbing, pedal edema Musculoskeletal exam: PRESENT: ambulatory, normal inspection. ABSENT: deformity Neurological exam: PRESENT: alert, awake, oriented to person, oriented to place, oriented to time Psychiatric exam: PRESENT: appropriate affect, normal mood Skin exam: PRESENT: dry, warm Results Laboratory Results: 11/23/18 05:21 11/23/18 05:21 11/23/18 11/23/18 11/23/18 05:21 05:21 05:21 WBC 15.2 H RBC 4.30 Hgb 12.8 Hct 37.8 MCV 88 MCH 29.7 MCHC 33.8 RDW 13.9 Plt Count 257 Seg Neutrophils % 86.8 H Lymphocytes % 10.0 L Monocytes % 3.0 Eosinophils % 0.0 Basophils % 0.2 Absolute Neutrophils 13.2 H Absolute Lymphocytes 1.5 Absolute Monocytes 0.5 Absolute Eosinophils 0.0 Absolute Basophils 0.0 Sodium 139.3 Potassium 4.5 Chloride 106 Carbon Dioxide 24 Anion Gap 9 BUN 5 L Creatinine 0.30 L Est GFR ( Amer) > 60 Est GFR (Non-Af Amer) > 60 Glucose 202 H Calcium 9.1 Magnesium 2.1 TSH 0.52 Free T4 0.79 Free T3 pg/mL 2.12 L 11/21/18 20:51 Troponin I < 0.012 Impressions: Chest X-Ray 11/21/18 20:43 IMPRESSION: There is no acute pleural-parenchymal process seen in the imaged lung [place]. Location of Interpretation: [facility] Chest/Abdomen CTA 11/21/18 22:08 IMPRESSION: Rather extensive groundglass opacities bilaterally likely reflecting pneumonia. Mediastinal and hilar adenopathy may be reactive. Recommend follow-up following appropriate therapy. Negative for pulmonary embolus. TECHNICAL DOCUMENTATION: Quality ID # 436: Final reports with documentation of one or more dose reduction techniques (e.g., Automated exposure control, adjustment of the mA and/or kV according to patient size, use of iterative reconstruction technique) copyright 2011 [employer]- All Rights Reserved Assessment & Plan - Diagnosis (1) Acute respiratory failure with hypoxia Is this a current diagnosis for this admission?: Yes Plan: Improving, but still requiring oxygen. Continue supplemental O2 to maintain SPO2 greater than 90%. Aggressive pulmonary toilet (2) Bilateral pneumonia Qualifiers: Pneumonia type: due to unspecified organism Lung location: lower lobe of lung Qualified Code(s): J18.1 - Lobar pneumonia, unspecified organism Is this a current diagnosis for this admission?: Yes Plan: Continue current antibiotic regimen. Cultures are pending. Aggressive pulmonary toilet. (3) Sepsis Qualifiers: Sepsis type: sepsis due to unspecified organism Qualified Code(s): A41.9 - Sepsis, unspecified organism Is this a current diagnosis for this admission?: Yes Plan: Continue current therapies as noted above. Fever has resolved. Overall clinically improving. - Time Time Spent with patient: 15-24 minutes
[2018-11-23] MEDS: ALBUTEROL SULFATE 0.083% NEB 2.5 MG/3 ML AMPUL NEB PRN (20:10)
[2018-11-23] MEDS: AMITRIPTYLINE HCL 50 MG TABLET PO SCH (22:52)
[2018-11-24] MEDS: LEVALBUTEROL HCL NEB 1.25 MG/3 ML AMPUL NEB SCH ×3 (00:41→16:21)
[2018-11-24] MEDS: IPRATROPIUM BROMIDE 0.02% NEB 0.5 MG/2.5 ML AMPUL NEB SCH ×3 (00:41→16:21)
[2018-11-24 05:51] LABS: ABSOLUTE BASOPHILS # (AUTO) 0.1 10^3/uL (0.0-0.2); ABSOLUTE LYMPHOCYTES (AUTO) 3.1 10^3/uL (0.5-4.7); ABSOLUTE MONOCYTES (AUTO) 0.6 10^3/uL (0.1-1.4); ABSOLUTE NEUT (AUTO) 6.5 10^3/uL (1.7-8.2); BASOPHILS % (AUTO) 0.6 % (0-2); EOSINOPHILS % (AUTO) 0.3 % (0-6); HEMATOCRIT 36.1 % (36.0-47.0); HEMOGLOBIN 12.4 g/dL (12.0-15.5); LYMPHOCYTES % (AUTO) 30.2 % (13-45); MEAN CORPUSCULAR HEMOGLOBIN 29.4 pg (27.0-33.4); MEAN CORPUSCULAR HGB CONC 34.3 g/dL (32.0-36.0); MEAN CORPUSCULAR VOLUME 86 fl (80-97); MONOCYTES % (AUTO) 5.5 % (3-13); PLATELET COUNT 249 10^3/uL (150-450); RED BLOOD COUNT 4.21 10^6/uL (3.72-5.28); RED CELL DISTRIBUTION WIDTH 14.1 % (11.5-14.0); SEGMENTED NEUTROPHILS % (AUTO) 63.4 % (42-78); TOTAL CELLS COUNTED % (AUTO) 100 %; WHITE BLOOD COUNT 10.3 10^3/uL (4.0-10.5)
[2018-11-24 06:18] LABS: ANION GAP 10 (5-19); BLOOD UREA NITROGEN 6 mg/dL (7-20); CALCIUM 8.7 mg/dL (8.4-10.2); CARBON DIOXIDE 28 mmol/L (22-30); CHLORIDE 102 mmol/L (98-107); GLUCOSE 91 mg/dL (75-110); POTASSIUM 3.9 mmol/L (3.6-5.0); SODIUM 139.5 mmol/L (137-145)
[2018-11-24] MEDS: LEVOFLOXACIN 750 MG TABLET PO SCH (06:45)
[2018-11-24] MEDS: HEPARIN SOD (PORCINE) 5,000 UNIT/ML 1 ML SYRINGE SUBCUT SCH ×3 (06:45→21:26)
[2018-11-24] MEDS: BUDESONIDE NEB 0.5 MG/2 ML AMPUL NEB SCH ×2 (08:25→20:23)
[2018-11-24] MEDS: ACETYLCYSTEINE 20% SOLN 800 MG/4 ML VIAL.NEB NEB SCH ×2 (08:25→20:23)
[2018-11-24] MEDS: DOCUSATE SODIUM 100 MG CAPSULE PO SCH ×2 (10:14→17:16)
[2018-11-24] MEDS: SERTRALINE HCL 50 MG TABLET PO SCH (10:44)
[2018-11-24] MEDS: FAMOTIDINE 20 MG TABLET PO SCH ×2 (10:44→21:25)
--- NOTE | 2018-11-24 16:36 | PDOC PROGRESS REPORT ---
Subjective Progress Note for:: 11/24/18 Subjective:: No adverse events overnight. She spent most of the day at rest on room air. She got up and walked earlier and her oxygen saturations dropped a little bit into the 80s. Her cough continues to be productive. Her breathing she says feels more comfortable to her. Reason For Visit: ACUTE RESPIRATORY FAILURE WITH HYPOXIA Physical Exam Vital Signs: Temp Pulse Resp BP Pulse Ox 99.2 F 98 17 123/69 96 11/24/18 15:46 11/24/18 15:46 11/24/18 15:46 11/24/18 15:46 11/24/18 15:46 Intake & Output 11/23/18 11/24/18 11/25/18 06:59 06:59 06:59 Intake Total 3950 3158 474 Output Total 3325 2850 700 Balance 625 308 -226 Weight 99.2 kg 99.6 kg General appearance: PRESENT: no acute distress, cooperative, morbidly obese Respiratory exam: PRESENT: Rhonchi- Bilaterally, symmetrical, unlabored. ABSENT: accessory muscle use, crackles, tachypnea, wheezes Cardiovascular exam: PRESENT: RRR, +S1, +S2 Vascular exam: PRESENT: normal capillary refill GI/Abdominal exam: PRESENT: normal bowel sounds, soft. ABSENT: distended, guarding, rebound, tenderness Extremities exam: ABSENT: clubbing, pedal edema Musculoskeletal exam: PRESENT: ambulatory, normal inspection. ABSENT: deformity Neurological exam: PRESENT: alert, awake, oriented to person, oriented to place, oriented to time Psychiatric exam: PRESENT: appropriate affect, normal mood Skin exam: PRESENT: dry, warm Results Laboratory Results: 11/24/18 04:55 11/24/18 04:55 11/24/18 11/24/18 04:55 04:55 WBC 10.3 RBC 4.21 Hgb 12.4 Hct 36.1 MCV 86 MCH 29.4 MCHC 34.3 RDW 14.1 H Plt Count 249 Seg Neutrophils % 63.4 Lymphocytes % 30.2 Monocytes % 5.5 Eosinophils % 0.3 Basophils % 0.6 Absolute Neutrophils 6.5 Absolute Lymphocytes 3.1 Absolute Monocytes 0.6 Absolute Eosinophils 0.0 Absolute Basophils 0.1 Sodium 139.5 Potassium 3.9 Chloride 102 Carbon Dioxide 28 Anion Gap 10 BUN 6 L Creatinine 0.41 L Est GFR ( Amer) > 60 Est GFR (Non-Af Amer) > 60 Glucose 91 Calcium 8.7 Magnesium 1.9 11/21/18 23:07 Clean Catch Midstream Urine Culture - Final NO GROWTH 2 DAYS 11/21/18 20:51 Troponin I < 0.012 Impressions: Chest X-Ray 11/21/18 20:43 IMPRESSION: There is no acute pleural-parenchymal process seen in the imaged lung [place]. Location of Interpretation: [facility] Chest/Abdomen CTA 11/21/18 22:08 IMPRESSION: Rather extensive groundglass opacities bilaterally likely reflecting pneumonia. Mediastinal and hilar adenopathy may be reactive. Recommend follow-up following appropriate therapy. Negative for pulmonary embolus. TECHNICAL DOCUMENTATION: Quality ID # [id number]: Final reports with documentation of one or more dose reduction techniques (e.g., Automated exposure control, adjustment of the mA and/or kV according to patient size, use of iterative reconstruction technique) copyright 2011 [employer]- All Rights Reserved Assessment & Plan - Diagnosis (1) Acute respiratory failure with hypoxia Is this a current diagnosis for this admission?: Yes Plan: Improving with aggressive pulmonary toilet. She does okay at rest, but when she ambulates her oxygen saturations dropped. We will continue with pulmonary toilet and encouraging ambulation. (2) Bilateral pneumonia Qualifiers: Pneumonia type: due to unspecified organism Lung location: lower lobe of lung Qualified Code(s): J18.1 - Lobar pneumonia, unspecified organism Is this a current diagnosis for this admission?: Yes Plan: Continue current antibiotic regimen. Cultures are pending. Aggressive pulmonary toilet. (3) Sepsis Qualifiers: Sepsis type: sepsis due to unspecified organism Qualified Code(s): A41.9 - Sepsis, unspecified organism Is this a current diagnosis for this admission?: Yes Plan: Continue current therapies as noted above. Fever has resolved. Overall clinically improving. - Time Time Spent with patient: 15-24 minutes
[2018-11-24] MEDS: ALBUTEROL SULFATE 0.083% NEB 2.5 MG/3 ML AMPUL NEB PRN (20:23)
[2018-11-24] MEDS: AMITRIPTYLINE HCL 50 MG TABLET PO SCH (21:25)
[2018-11-25] MEDS: IPRATROPIUM BROMIDE 0.02% NEB 0.5 MG/2.5 ML AMPUL NEB SCH ×2 (00:43→08:37)
[2018-11-25] MEDS: LEVALBUTEROL HCL NEB 1.25 MG/3 ML AMPUL NEB SCH ×2 (00:43→08:37)
[2018-11-25] MEDS: LEVOFLOXACIN 750 MG TABLET PO SCH (05:08)
[2018-11-25] MEDS: HEPARIN SOD (PORCINE) 5,000 UNIT/ML 1 ML SYRINGE SUBCUT SCH (05:08)
[2018-11-25 06:22] LABS: ABSOLUTE EOSINOPHILS # (AUTO) 0.1 10^3/uL (0.0-0.6); ABSOLUTE MONOCYTES (AUTO) 0.5 10^3/uL (0.1-1.4); ABSOLUTE NEUT (AUTO) 3.9 10^3/uL (1.7-8.2); BASOPHILS % (AUTO) 0.4 % (0-2); EOSINOPHILS % (AUTO) 1.1 % (0-6); HEMOGLOBIN 13.2 g/dL (12.0-15.5); MEAN CORPUSCULAR HEMOGLOBIN 29.9 pg (27.0-33.4); MEAN CORPUSCULAR HGB CONC 34.7 g/dL (32.0-36.0); MEAN CORPUSCULAR VOLUME 86 fl (80-97); MONOCYTES % (AUTO) 6.1 % (3-13); PLATELET COUNT 275 10^3/uL (150-450); RED BLOOD COUNT 4.42 10^6/uL (3.72-5.28); RED CELL DISTRIBUTION WIDTH 13.8 % (11.5-14.0); SEGMENTED NEUTROPHILS % (AUTO) 52.4 % (42-78); TOTAL CELLS COUNTED % (AUTO) 100 %; WHITE BLOOD COUNT 7.4 10^3/uL (4.0-10.5)
[2018-11-25 07:04] LABS: ANION GAP 10 (5-19); BLOOD UREA NITROGEN 8 mg/dL (7-20); CALCIUM 9.1 mg/dL (8.4-10.2); CARBON DIOXIDE 28 mmol/L (22-30); CHLORIDE 100 mmol/L (98-107); GLUCOSE 100 mg/dL (75-110); SODIUM 138.4 mmol/L (137-145)
[2018-11-25] MEDS: ACETYLCYSTEINE 20% SOLN 800 MG/4 ML VIAL.NEB NEB SCH (08:37)
[2018-11-25] MEDS: BUDESONIDE NEB 0.5 MG/2 ML AMPUL NEB SCH (08:37)
[2018-11-25] MEDS: SERTRALINE HCL 50 MG TABLET PO SCH (10:01)
[2018-11-25] MEDS: DOCUSATE SODIUM 100 MG CAPSULE PO SCH (10:01)
[2018-11-25] MEDS: FAMOTIDINE 20 MG TABLET PO SCH (10:02)
[2018-11-25 13:13] VITALS: BP 125/71
--- NOTE | 2018-11-25 16:46 | PDOC DISCHARGE SUMMARY ---
General - Admit/Disc Date/PCP Admission Date/Primary Care Provider: 11/22/18 00:28 SHAWNA CHISHOLM NP Discharge Date: 11/25/18 - Discharge Diagnosis (1) Acute respiratory failure with hypoxia Is this a current diagnosis for this admission?: Yes Summary: This improved with treatment of the pneumonia and aggressive pulmonary toilet. She was able to ambulate on room air and maintain her oxygen saturations in the mid 90s at time of discharge. (2) Bilateral pneumonia Is this a current diagnosis for this admission?: Yes Summary: We treated her with Levaquin and aggressive pulmonary toilet. She never had any positive culture results but she responded well to the antibiotics. She will complete a course of treatment at home. (3) Sepsis Is this a current diagnosis for this admission?: Yes Summary: This resolved with treatment of her infection. - Additional Information Resuscitation Status: Full Code Discharge Diet: Regular Discharge Activity: Activity As Tolerated Prescriptions: Levofloxacin [Levaquin 750 mg Tablet] 750 mg PO Q6AM #4 tablet Home Medications: Amitriptyline HCl [Elavil 50 mg Tablet] 50 mg PO QHS 11/22/18 Butalb/Acetaminophen/Caffeine [Xunbru-Plzinkze-Cqor 50-300-40] 1 cap PO Q4HP PRN 11/22/18 Cholestyramine (with Sugar) [Cholestyramine Packet] 4 gm PO DAILYP PRN 11/22/18 Promethazine HCl [Phenergan 25 mg Tablet] 25 mg PO Q6HP PRN 11/22/18 Ranitidine HCl [Zantac 150 mg Tablet] 150 mg PO BID 11/22/18 Sertraline HCl [Zoloft] 150 mg PO DAILY 11/22/18 Levofloxacin [Levaquin 750 mg Tablet] 750 mg PO Q6AM #4 tablet 11/25/18 History of Present Illness History of Present Illness: EVE JUAREZ is a 38 year old female with a 5-day history of progressively worsening upper respiratory symptoms. She admits to nasal congestion alternating with rhinorrhea and sneezing beginning 5 days ago and progressing gradually to a mild nonproductive cough and sore throat followed by continued progression to a more frequent and intense nonproductive cough with associated subjective severe fever with chills and frequent posttussive emesis. She rates her cough as severe and has not identified any aggravating or ameliorating factors for her cough other than it is worsened by smoking. She admits to several similar prior episodes with pneumonia or other respiratory tract infections requiring hospitalization in some cases. In the emergency room she was found to have a sinus tachycardia in the 120's with a fever of 102.3 F, a minimally elevated white blood count of 10,900 and a negative chest x-ray but she did have some transient hypoxia while in the emergency room requiring supplemental oxygen to be provided and she subsequently had a CTA of her chest performed which was negative for pulmonary embolus but did show some scattered patchy areas of interstitial infiltrate. She was subsequently admitted for intravenous antibiotic therapy until such time she can tolerate oral antibiotics and is stable on that regimen. Hospital Course Hospital Course: She was treated with Levaquin for infection. She initially required oxygen but with aggressive pulmonary toilet was able to come off oxygen over the course of a few days. She was able to ambulate off oxygen and maintain her SPO2 greater than 90% without difficulty. She will complete a course of Levaquin at home. Her labs and examination were reassuring and she was discharged in good condition. Physical Exam Vital Signs: Temp Pulse Resp BP Pulse Ox 98.4 F 108 H 20 125/71 94 11/25/18 12:53 11/25/18 12:53 11/25/18 12:53 11/25/18 12:53 11/25/18 12:53 Intake & Output 11/24/18 11/25/18 11/26/18 06:59 06:59 06:59 Intake Total 3158 874 522 Output Total 2850 1900 650 Balance 308 -1026 -128 Weight 99.6 kg 98.6 kg General appearance: PRESENT: no acute distress, cooperative, morbidly obese Respiratory exam: PRESENT: clear to auscultation bilaterally, symmetrical, unl abored. ABSENT: accessory muscle use, crackles, tachypnea, wheezes Cardiovascular exam: PRESENT: RRR, +S1, +S2 Vascular exam: PRESENT: normal capillary refill GI/Abdominal exam: PRESENT: normal bowel sounds, soft. ABSENT: distended, guarding, rebound, tenderness Extremities exam: ABSENT: clubbing, pedal edema Musculoskeletal exam: PRESENT: ambulatory, normal inspection. ABSENT: deformity Neurological exam: PRESENT: alert, awake, oriented to person, oriented to place, oriented to time Psychiatric exam: PRESENT: appropriate affect, normal mood Skin exam: PRESENT: dry, warm Results Laboratory Results: 11/25/18 05:26 11/25/18 05:26 11/25/18 11/25/18 05:26 05:26 WBC 7.4 RBC 4.42 Hgb 13.2 Hct 38.0 MCV 86 MCH 29.9 MCHC 34.7 RDW 13.8 Plt Count 275 Seg Neutrophils % 52.4 Lymphocytes % 40.0 Monocytes % 6.1 Eosinophils % 1.1 Basophils % 0.4 Absolute Neutrophils 3.9 Absolute Lymphocytes 3.0 Absolute Monocytes 0.5 Absolute Eosinophils 0.1 Absolute Basophils 0.0 Sodium 138.4 Potassium 4.0 Chloride 100 Carbon Dioxide 28 Anion Gap 10 BUN 8 Creatinine 0.38 L Est GFR ( Amer) > 60 Est GFR (Non-Af Amer) > 60 Glucose 100 Calcium 9.1 Magnesium 2.2 11/22/18 03:00 Sputum Gram Stain - Final 11/22/18 03:00 Sputum Sputum Culture - Final NORMAL BOB 11/22/18 21:30 Sputum Gram Stain - Final 11/22/18 21:30 Sputum Sputum Culture - Final NORMAL BOB 11/21/18 20:51 Troponin I < 0.012 Impressions: Chest X-Ray 11/21/18 20:43 IMPRESSION: There is no acute pleural-parenchymal process seen in the imaged lung [place]. Location of Interpretation: [facility] Chest/Abdomen CTA 11/21/18 22:08 IMPRESSION: Rather extensive groundglass opacities bilaterally likely reflecting pneumonia. Mediastinal and hilar adenopathy may be reactive. Recommend follow-up following appropriate therapy. Negative for pulmonary embolus. TECHNICAL DOCUMENTATION: Quality ID # [id number]: Final reports with documentation of one or more dose reduction techniques (e.g., Automated exposure control, adjustment of the mA and/or kV according to patient size, use of iterative reconstruction technique) copyright 2011 [employer]- All Rights Reserved Qualifiers - * PATIENT BEING DISCHARGED WITH ANY OF THE FOLLOWING DIAGNOSIS: No
== END 2018-11-25 13:50 | disposition home or self-care (01) | DRG 193 ==
LOC: ER 20:19 → EH 11-22 00:28 → 3W 11-22 02:23
PROVIDERS: ADMIT Emergency Medicine; ATTEND Emergency Medicine
PROC: 3E0F73Z Introduction of Anti-inflammatory into Respiratory Tract, Via Natural or Artificial Opening (ICD-10-PCS; principal; 2018-11-22)
PROC: 3E02340 Introduction of Influenza Vaccine into Muscle, Percutaneous Approach (ICD-10-PCS; 2018-11-25)
DX: J18.1 Lobar pneumonia, unspecified organism (principal); J96.01 Acute respiratory failure with hypoxia; Z68.41 Body mass index [BMI] 40.0-44.9, adult; I10 Essential (primary) hypertension; K21.9 Gastro-esophageal reflux disease without esophagitis; F32.9 Major depressive disorder, single episode, unspecified; F17.210 Nicotine dependence, cigarettes, uncomplicated; E66.01 Morbid (severe) obesity due to excess calories; J01.90 Acute sinusitis, unspecified; Z23 Encounter for immunization; Z79.899 Other long term (current) drug therapy; Z90.49 Acquired absence of other specified parts of digestive tract; Z90.710 Acquired absence of both cervix and uterus; Z88.6 Allergy status to analgesic agent; Z83.3 Family history of diabetes mellitus; Z82.49 Family history of ischemic heart disease and other diseases of the circulatory system; Z80.9 Family history of malignant neoplasm, unspecified
CPT/HCPCS: 36415; 36600; 71045; 71275; 80048; 80053; 81001; 82803; 82962; 83036; 83605; 83690; 83735; 84439; 84443; 84481; 84484; 84703; 85025; 85610; 87040; 87070; 87086; 87205; 87804; 90686; 93005; 93010; 94640; 96361; 96374; 99291; J0696; J1644; J1956; J2405; J2920; J3480; J3490; J7030; J7620

== ENCOUNTER 2019-02-05 11:08 | Day surgery (SDC) | payer OTHER ==
[~2019-02-05 11:08] MED LIST changes: -CEFTRIAXONE 1 GM/D5W RTU 1 GM/50 ML RTUPB IV ONE; +PROPOFOL INJ 200 MG/20 ML VIAL IV ONE
--- NOTE | 2019-02-05 11:35 | Operative Report ---
Operative Report DATE OF SURGERY: 02/05/19 Operative Report: The risks benefits and alternatives of the procedure explained to the patient in detail and informed consent is obtained.A GIF Olympus video scope was inserted into the patient's mouth and hypopharynx, the esophagus is identified intubated and insufflated, the scope was then advanced through the esophagus stomach and duodenum ,retroflexion maneuver is done ,the esophagus stomach and first and second portions of the duodenum examined. PREOPERATIVE DIAGNOSIS: Epigastric pain rule out peptic ulcer disease POSTOPERATIVE DIAGNOSIS: Erosive esophagitis Wharton classification grade B. Gastritis status post biopsy rule out Helicobacter pylori OPERATION: EGD with biopsy SURGEON: TESS MORA ANESTHESIA: LMAC TISSUE REMOVED OR ALTERED: As noted above COMPLICATIONS: None. ESTIMATED BLOOD LOSS: None. INTRAOPERATIVE FINDINGS: As noted above. PROCEDURE: Patient tolerated the procedure well. No immediate postprocedure complications are noted. Patient discharged in good condition. Discharge date 02/05/2019. Discharge diet: Regular. Discharge activity: Regular. 2-3-week follow-up to discuss findings. Patient is instructed to call the office or proceed to the emergency room should there be any further proximal questions. Wait on the pathology.
[2019-02-05 12:12] VITALS: BP 121/67
== END 2019-02-05 12:12 | disposition home or self-care (01) ==
LOC: END 11:08
PROVIDERS: ATTEND Internal Medicine Gastroenterology
DX: K29.50 Unspecified chronic gastritis without bleeding (principal); K21.0 Gastro-esophageal reflux disease with esophagitis; I10 Essential (primary) hypertension; E78.5 Hyperlipidemia, unspecified; F32.9 Major depressive disorder, single episode, unspecified; G43.909 Migraine, unspecified, not intractable, without status migrainosus; Z87.891 Personal history of nicotine dependence; Z79.899 Other long term (current) drug therapy; Z79.51 Long term (current) use of inhaled steroids; Z88.5 Allergy status to narcotic agent; Z88.8 Allergy status to other drugs, medicaments and biological substances
CPT/HCPCS: 43239; 731; 88305; 88342; J2704